=== PATIENT | male | born 2000 | race Caucasian/White ===

== ENCOUNTER 2019-08-20 13:23 | Emergency (ER) | payer OTHER ==
[2019-08-20] MEDS ORDERED: Ibuprofen 200 MG TAB ONE (14:38)
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
== END 2019-08-20 15:35 | disposition home or self-care (01) ==
LOC: ERS 13:23
DX: S16.1XXA Strain of muscle, fascia and tendon at neck level, initial encounter (principal); M54.9 Dorsalgia, unspecified; F32.9 Major depressive disorder, single episode, unspecified; Z87.442 Personal history of urinary calculi; Z79.899 Other long term (current) drug therapy; V89.2XXA Person injured in unspecified motor-vehicle accident, traffic, initial encounter
CPT/HCPCS: 72125; 72128; 72131; L0120